=== PATIENT | male | born 1980 | race Caucasian/White ===

== ENCOUNTER 2017-11-28 10:55 | Emergency (ER) | payer BC ==
[2017-11-28] MEDS ORDERED: ORPHENADRINE 30 MG/ML 2 ML VIAL IM STA (11:20)
[2017-11-28] MEDS ORDERED: KETOROLAC 60 MG/2 ML VIAL IM STA (11:20)
--- NOTE | 2017-11-28 11:22 | ED ---
General Adult HPI - General Chief complaint: Back Pain/Injury Stated complaint: Back injury Time Seen by Provider: 11/28/17 11:00 Source: patient, RN notes reviewed Mode of arrival: ambulatory Limitations: no limitations - History of Present Illness Initial comments: This is a 37-year-old male who presents emergency Department complaining of mid upper back pain between her shoulder blades. Patient was in the at the gym doing shrugs were 285 pounds when he felt something in the mid back and his description pop and then he had significant pain in the mid back. Patient denies any numbness or weakness in the arms or legs patient said the pain did radiate around to the front of his chest when it occurred initially. Patient states now it still hurts in that area does hurt to twist that area of his back. - Related Data Home Medications Medication Instructions Recorded Confirmed Sertraline [Zoloft] 75 mg PO DAILY 11/28/17 11/28/17 Previous Rx's Medication Instructions Recorded Ibuprofen [Motrin] 600 mg PO Q6HR PRN #20 tab 11/28/17 Orphenadrine [Norflex] 100 mg PO Q12H #20 tablet.er 11/28/17 Allergies Allergy/AdvReac Type Severity Reaction Status Date / Time Penicillins Allergy Unknown Verified 11/28/17 11:36 Review of Systems ROS Statement: Those systems with pertinent positive or pertinent negative responses have been documented in the HPI. ROS Other: All systems not noted in ROS Statement are negative. Past Medical History Past Medical History: Asthma Past Surgical History: No Surgical Hx Reported Past Psychological History: Anxiety Smoking Status: Never smoker Past Alcohol Use History: Occasional Past Drug Use History: None Reported General Exam - General Exam Comments Initial Comments: GENERAL Patient is well-developed and well-nourished. Patient is in mild distress. EYES Patient's pupils are equal and round. Extraocular motion is intact SKIN Unremarkable NEURO The patient is alert and oriented 3 PYSCH Patient has normal interpersonal interactions. MUSCULOSKELETAL Patient has some minimal tenderness in the mid back region on the spinous process and bilaterally. Limitations: no limitations Course Vital Signs 11/28/17 10:57 Temperature 98.0 F Pulse Rate 89 Respiratory 20 Rate Blood Pressure 137/92 O2 Sat by Pulse 99 Oximetry Medical Decision Making - Medical Decision Making Patient's x-ray of the thoracic spine was normal. I gave the patient shot of Norflex and Toradol and he stated he felt considerably better. Disposition Clinical Impression: Thoracic myofascial strain Disposition: HOME SELF-CARE Condition: Good Instructions: Thoracic Back Strain (ED) Prescriptions: Ibuprofen [Motrin] 600 mg PO Q6HR PRN #20 tab PRN Reason: For pain Orphenadrine [Norflex] 100 mg PO Q12H #20 tablet.er Referrals: None,Stated [Primary Care Provider] - 1-2 days Time of Disposition: 12:50
--- NOTE | 2017-11-28 12:07 | XR ---
EXAMINATION TYPE: XR thoracic spine complete , 3 VIEWS DATE OF EXAM ORDERED: 11/28/2017 HISTORY: Pain. COMPARISON: None. FINDINGS: Vertebral body height and alignment are maintained. No fractures are seen. There is no sig nificant degenerative change. Paraspinal soft tissues are normal. The pedicles are intact. IMPRESSION: NORMAL THORACIC SPINE.
[2017-11-28 13:02] VITALS: BP 127/83; PULSE 58; RESP 17; TEMP 97.3
== END 2017-11-28 13:01 | disposition home or self-care (01) ==
LOC: EC 10:55
DX: S29.012A Strain of muscle and tendon of back wall of thorax, initial encounter (principal); F41.9 Anxiety disorder, unspecified; Z79.899 Other long term (current) drug therapy; Z88.0 Allergy status to penicillin; X50.0XXA Overexertion from strenuous movement or load, initial encounter; Y93.B3 Activity, free weights; Y92.39 Other specified sports and athletic area as the place of occurrence of the external cause
CPT/HCPCS: 99283; 96372 ×2; 72072; J2360; J1885